=== PATIENT | male | born 1975 | race American Indian/Alaskan Native ===

== ENCOUNTER 2018-12-03 10:06 | Day surgery (SDC) | payer OTHER ==
--- NOTE | 2018-12-03 10:40 | Anesthesia Day of Surgery ---
Anesthesia Day of Surgery - Day of Surgery Patient Examined: Yes Patient H&P Reviewed: Yes Patient is NPO: Yes
--- NOTE | 2018-12-03 10:44 | Anesthesia Consultation ---
Anesthesia Consult and Med Hx Date of service: 12/03/18 - Airway Anesthetic Teeth Evaluation: Good ROM Head & Neck: Adequate Mental/Hyoid Distance: Adequate Mallampati Class: Class I Intubation Access Assessment: Good - Pre-Operative Health Status ASA Pre-Surgery Classification: ASA1 Proposed Anesthetic Plan: MAC - Gastrointestinal Hx Ulcer: Yes
[2018-12-03] MEDS ORDERED: MIDAZOLAM 2 MG/2 ML INJ ONE (10:53)
[2018-12-03] MEDS ORDERED: PROPOFOL 200 MG/20 ML VIAL IV ONE (10:53)
[2018-12-03] MEDS ORDERED: SODIUM CHLORIDE 0.9% 1000 ML 1,000 ML IV SCH (11:00)
--- NOTE | 2018-12-03 11:34 | Short Stay Summary ---
Short Stay Documentation Date of service: 12/03/18 - History H&P: obtained from office - Allergies and Medications Current Medications: Allergies No Known Allergies Allergy (Verified 12/03/18 10:16) Home Medications Medication Instructions Recorded Confirmed Last Taken Type RX: No Known Home Medications [No 12/03/18 12/03/18 Unknown History Reported Home Medications] Active Medications Sodium Chloride (Nacl 0.9% 1000 Ml) 1,000 mls @ 50 mls/hr IV DIRECT JUAN JOSE Last Admin: 12/03/18 10:47 Dose: 50 mls/hr Documented by: - Brief post op/procedure progress note Date of procedure: 12/03/18 Findings: see dictation Estimated blood loss: none Pathology: list (1. biopsies of ileocecal valve 2. biopsies of ascending colon, random) Specimen disposition: to lab Condition: stable - Disposition Condition at discharge: Good Disposition: DC-01 TO HOME OR SELFCARE - Discharge Diagnoses (1) Rectal bleeding Status: Acute (2) Perianal cellulitis Status: Acute Short Stay Discharge Plan Activity: other (no driving fo 24 hours) Weight Bearing Status: Full Weight Bearing Diet: regular Follow up with: PRIMARY CARE, [Primary Care Provider] - 7 Days
--- NOTE | 2018-12-03 11:40 | Operative Report ---
Operative Report Operative Report: Date of procedure: 12/03/2018 Preprocedure diagnosis: Rectal bleeding and perianal disease suggestive of poss ible Crohn's disease. Post procedure diagnosis: Inflamed ileocecal valve and scattered ulcerations of the descending colon suggestive of Crohn's disease. Scattered aphthous ulcerations of the rectum. Perianal thickening skin tags and induration. Procedure: Colonoscopy to the cecum and terminal ileum with biopsies of the ascending colon and ileocecal valve. Endoscopist: Dr. Good Anesthesia: Monitored anesthesia care per anesthesia department Estimated blood loss: 0 Medications: Monitored anesthesia care. See separate report by anesthesia for details. After careful discussion of the nature and purpose of the procedure as well as details of the technique risks benefits and alternatives the patient gave consent. Please see recent history and physical from the office. The patient w as placed in the left lateral decubitus position and medicated per anesthesia. A rectal exam was performed revealing perianal thickening, multiple skin tags and induration extending from the anus approximately 2-3 cm to the left perineal area. No definite fluctuance. No internal masses were appreciated. The [employer] 570 scope was passed transanally and advanced under continuous direct vision without difficulty to the cecum. The colon was well prepared. The cecum was normal. The ileocecal valve was ulcerated. Biopsies were taken of the valve. The scope was advanced through the valve and into the distal 5-10 cm of terminal ileum which appeared normal. The ascending colon revealed scattered punctate shallow ulcers. Biopsies were taken at random in the descending colon. The transverse colon, descending colon, and sigmoid colon were normal. The rectum revealed scattered punctate ulcerations with intervening normal mucosa. There were no deep ulcers or any suspicion of a fistula internally on forward or retroflexed views. The procedure was well- tolerated overall and the patient was observed in recovery. Conclusions: Suspected Crohn's disease with ulcerations of the ileocecal valve, ascending colon, rectum and the presence of perianal disease with thickening, induration and multiple skin tags. Plan: Await pathology. Continue Cipro and Flagyl to treat the perianal disease which has been improving. The patient will follow-up to the office in a few weeks. Signed electronically: Alli Good M.D.
[2018-12-03 12:16] VITALS: BP 108/67
--- NOTE | 2018-12-03 15:51 | Post Anesthesia Evaluation ---
- Post Anesthesia Evaluation Patient Participated: Yes Airway Patent: Yes Stable Respiratory Function: Yes Nausea/Vomiting: No Temp > 96.8F: Yes Pain Manageable: Yes Adequeate Hydration: Yes Anesthesia Complications: No Block Receding Appropriately: Not Applicable Patient on Ventilator: No
== END 2018-12-03 10:07 | disposition home or self-care (01) ==
LOC: GIO 10:06
PROVIDERS: ATTEND Internal Medicine Gastroenterology
DX: K62.5 Hemorrhage of anus and rectum (principal); K52.89 Other specified noninfective gastroenteritis and colitis; K61.0 Anal abscess; K64.8 Other hemorrhoids; Z79.899 Other long term (current) drug therapy
CPT/HCPCS: 45380; 88305; 88341; 88342; J2250; J2704